=== PATIENT | female | born 1945 | race Caucasian/White ===

== ENCOUNTER 2021-12-25 09:45 | Inpatient (IN) ==
[2021-12-25] MEDS ORDERED: 0.9 % SODIUM CHLORIDE 1,000 ML IV ONE ×2 (10:27→11:02)
--- NOTE | 2021-12-25 10:30 | Emergency Department Note ---
HPI General Chief complaint: Cold/Flu Symptoms Stated complaint: bad cough Time Seen by Provider: 12/25/21 10:21 Source: patient Mode of arrival: ambulatory Limitations: no limitations History of Present Illness HPI Narrative: Narrative: The patient presents with approximately 3 weeks of what she calls a "bad cough." She states that over the last few days, it has become productive. She now has some nasal congestion as well. She feels mildly short of breath. She denies chest pain. She denies vomiting. She denies fever. Patient states that she feels like she is getting worse. Patient has not been on any antibiotics for this. She denies any other associated problems. Related Data Home Medications Medication Instructions Recorded Confirmed cholecalciferol (vitamin D3) 50 2,000 unit PO QDAY 11/15/18 12/07/21 mcg (2,000 unit) capsule aspirin 81 mg tablet 81 mg PO HS 12/10/20 12/07/21 famotidine 40 mg tablet (Pepcid) 40 mg PO HS 12/10/20 12/07/21 denosumab 60 mg/mL subcutaneous 60 mg subcut [id number] 05/23/21 12/07/21 syringe (Prolia) lovastatin 60 mg tablet,extended 60 mg PO QHS 05/23/21 12/07/21 release 24 hr multivitamin 1 tab PO QDAY 07/15/21 12/07/21 amlodipine 5 mg tablet 5 mg PO QDAY 08/29/21 12/07/21 apixaban 5 mg tablet (Eliquis) 5 mg PO BID 08/29/21 12/07/21 metoprolol succinate 25 mg 25 mg PO BID 08/29/21 12/07/21 tablet,extended release 24 hr omega 8-qns-hhz-fish oil 300 1 cap PO QDAY 08/29/21 12/07/21 mg-1,000 mg capsule (Fish Oil) pantoprazole 40 mg tablet,delayed 40 mg PO QDAY 08/29/21 12/07/21 release lisinopril 40 mg tablet 20 mg PO QDAY 12/07/21 12/07/21 Previous Rx's Medication Instructions Recorded hydrocodone 5 mg-acetaminophen 325 See Rx Instructions PO Q6H PRN 05/10/21 mg tablet Compression Fracture #30 tabs Allergies Allergy/AdvReac Type Severity Reaction Status Date / Time morphine AdvReac Itching Verified 12/25/21 09:51 Review of Systems ROS ROS Narrative: Narrative: All systems ED: reviewed and negative except as stated. [facility] Narrative Patient History Narrative: Narrative: Medical/Surgical/Family History All Active Problems (Updated 12/25/21 @ 14:50 by Salvador Ngo MD) Anemia (Chronic) Colon polyp (Chronic) Diverticulosis (Chronic) Stroke (Chronic ~2009) GI bleed (Chronic ~2016) Atrial fibrillation (Chronic ~2020) Hypertension (Chronic) High cholesterol (Chronic) Other low back pain (Chronic) Sacroiliac joint pain (Chronic) GERD (gastroesophageal reflux disease) (Chronic) Osteoporosis (Chronic) Chronic pain (Chronic) Arthritis (Chronic) Difficulty walking (Chronic) Spondylosis without myelopathy or radiculopathy, lumbar region (Chronic) Age-related osteoporosis with current pathological fracture, vertebra(e), initial encounter for fracture (Chronic) Abnormal findings on radiological examination of gastrointestinal tract (Chronic) Acute renal insufficiency (Chronic) Vitamin D deficiency (Chronic) Scoliosis deformity of spine (Chronic) Compression fracture of lumbosacral spine (Chronic) Stage 3 chronic kidney disease (Chronic) Hyperlipidemia (Chronic) Hypersomnia (Chronic) Hypertensive renal disease (Chronic) CKD stage G3a/A1, GFR 45-59 and albumin creatinine ratio <30 mg/g (Acute) Pneumonia (Acute) Sepsis (Acute) Medical History (Updated 12/25/21 @ 14:50 by Salvador Ngo MD) Abnormal findings on radiological examination of gastrointestinal tract Acute renal insufficiency Age-related osteoporosis with current pathological fracture, vertebra(e), initial encounter for fracture Anemia Arthritis Right shoulder, left knee -- has had injections with Dr. Hodges Atrial fibrillation (~2020) September 2020 Chronic pain Colon polyp Compression fracture of lumbosacral spine L4 Difficulty walking Diverticulosis GERD (gastroesophageal reflux disease) GI bleed (~2016) 2017, from Ibuprofen use High cholesterol Hyperlipidemia Hypersomnia Hypertension Osteoporosis Other low back pain Sacroiliac joint pain Scoliosis deformity of spine Spondylosis without myelopathy or radiculopathy, lumbar region Stage 3 chronic kidney disease Right sided weakness, difficulty with word findings, balance is impacted later in the day, walks with cane if needed Stroke (~2009) Vitamin D deficiency Surgical History (Updated 08/29/21 @ 10:14 by Maisha Bhatti) History of colonoscopy w/Biopsy History of colonoscopy (~11/2018) History of esophagogastroduodenoscopy (EGD) (~11/2018) History of hernia repair (~1989) History of hysterectomy (~1991) Age 50 History of knee surgery History of repair of ACL (~1980) History of surgery (~06/2002) TA polyp removed. Family History (Updated 08/29/21 @ 10:16 by Maisha Bhatti) Mother Hypertension Dementia Heart disease Arthritis Father Hypertension Heart attack, Onset Age: 70 Cardiac arrhythmia Sister Chronic pain Hypertension Heart disease Brother , age 67 Diabetes Colon cancer, Onset Age: 67 Social History Smoking Status: Former smoker Alcohol Intake Frequency: does not drink Substance Use: does not use Exam Narrative Narrative: Narrative: General Limitations: no limitations General appearance: Present alert and in no apparent distress Head Head: Present atraumatic and normal inspection Eye Eye: Present normal appearance and EOMI ENT ENT: Present mucous membranes dry; Absent mucous membranes moist Neck Neck: Present normal inspection, full ROM and trachea midline Chest Chest: Present normal inspection and symmetric chest wall rise Respiratory Respiratory: Present normal lung sounds bilaterally; Absent respiratory distress Cardiovascular Cardiovascular: Present normal rhythm, tachycardia and other (Bilateral radial 2+) Adbominal Abdominal: Present soft; Absent distention or tenderness Extremities Extremities: Present normal inspection and full ROM Back Back: Present full ROM Neurological Neurological: Present alert and oriented X3 Psychiatric Psychiatric: Present normal affect and normal mood Skin Skin: Present warm (WNL) and dry Course Reevaluation(s) Reevaluation #1: Although patient's chest x-ray shows no consolidative process, she is COVID- negative. She does have a mildly elevated lactic acid. We will give a second liter of fluid. Plan to give her a dose of Rocephin and Zithromax to cover for possible pulmonary infection. It is possible that since she is mildly dehydrated, that the infiltrate may not show up on plain film x-ray. Time: 11:02 Consultations Consultation #1: I spoke to the hospitalist, Dr. Mckenzie. He said he would come down to evaluate this patient for local admission Time: 12:53 Vital Signs Vital signs: Vital Signs Temperature 98.1 F 12/25/21 09:49 Pulse Rate 113 H 12/25/21 09:49 Respiratory Rate 12/25/21 09:49 Blood Pressure 101/63 12/25/21 09:49 Pulse Oximetry (%) 93 12/25/21 09:49 Oxygen Delivery Method 12/25/21 09:49 Temperature 98.1 F 12/25/21 09:49 Pulse Rate 107 H 12/25/21 12:28 Respiratory Rate 33 H 12/25/21 12:28 Blood Pressure 107/72 12/25/21 12:28 Pulse Oximetry (%) 94 12/25/21 12:28 Oxygen Delivery Method 12/25/21 09:49 MDM MDM Narrative Medical decision making narrative: Narrative: The patient presents with a worsening cough. She is mildly tachycardic but has no other concerning SIRS criteria. Viral infection is considered. Pneumonia is considered. Plan to check CBC, CMP, COVID, and trop onin. We will get an EKG and a chest x-ray. We will give a liter of fluid. As this is a possible viral infection, antibiotics will be held until studies are available. If there is an infiltrate then antibiotics will be given. If COVID is negative, antibiotics will most likely be considered given the chronicity of the symptoms. Lab Data Result diagrams: 12/25/21 10:36 12/25/21 10:36 Labs: Lab Results 12/25/21 12/25/21 12/25/21 Range/Units 10:36 10:36 10:36 WBC 16.2 H (4.5-11.0) K/mcL RBC 3.82 (3.59-5.38) M/mcL Hgb 11.9 (11.2-15.7) g/dL Hct 36.2 (34.1-44.9) % MCV 94.8 (80.0-100.0) fL MCH 31.2 (26.0-34.0) pg MCHC 32.9 (31.0-36.0) g/dL RDW 13.0 (11.5-14.5) % Plt Count 524 H (140-440) K/mcL MPV 9.2 (7.4-10.4) fL Immature Gran % (Auto) 1.0 H (0.0-0.5) % Neut % (Auto) 87.4 H (38.0-78.0) % Lymph % (Auto) 4.4 L (15.5-49.0) % [place] % (Auto) 6.8 (1.0-12.0) % Eos % (Auto) 0.1 (0.0-7.0) % Baso % (Auto) 0.3 (0.0-2.0) % Lymph # (Auto) 0.72 L (1.50-4.80) K/mcL [place] # (Auto) 1.10 H (0.10-0.90) K/mcL Eos # (Auto) 0.01 (0.00-0.70) K/mcL Baso # (Auto) 0.05 (0.00-0.30) K/mcL Immature Gran # 0.16 H (0.00-0.05) K/mcl Absolute Neutrophils 14.14 H (1.80-8.00) K/mcL POC VBG pH (7.32-7.42) POC VBG pCO2 at Temp (41-51) POC VBG pO2 (25-40) POC VBG HCO3 (24-28) POC VBG Total CO2 (25-29) POC Venous O2 Sat (40-70) POC VBG Base Excess (-2-2) VBG Lactic Acid (0.5-2) Sodium 136 (133-145) mmol/L Potassium 4.1 (3.3-5.1) mmol/L Chloride 99 (96-108) mmol/L Carbon Dioxide 20 L (22-30) mmol/L Anion Gap 17.0 H (8.0-16.0) BUN 17 (8-23) mg/dL Creatinine 1.2 H (0.6-1.1) mg/dL GFR Calculation 44 Glucose 133 H (70-105) mg/dL Calcium 9.2 (8.6-10.4) mg/dL Total Bilirubin 1.2 H (0.1-1.0) mg/dL AST 334 H (<32) U/L ALT 187 H (<40) U/L Alkaline Phosphatase 729 H (39-117) U/L Total Protein 6.4 (5.9-8.4) gm/dL Albumin 3.6 (3.2-5.2) gm/dL Globulin 2.8 (2.2-3.7) gm/dL Albumin/Globulin Ratio 1.3 (1.0-2.3) Procalcitonin 0.52 H (<0.10) ng/mL POC Troponin I (0.02-0.08) 12/25/21 12/25/21 Range/Units 10:40 10:41 WBC (4.5-11.0) K/mcL RBC (3.59-5.38) M/mcL Hgb (11.2-15.7) g/dL Hct (34.1-44.9) % MCV (80.0-100.0) fL MCH (26.0-34.0) pg MCHC (31.0-36.0) g/dL RDW (11.5-14.5) % Plt Count (140-440) K/mcL MPV (7.4-10.4) fL Immature Gran % (Auto) (0.0-0.5) % Neut % (Auto) (38.0-78.0) % Lymph % (Auto) (15.5-49.0) % [place] % (Auto) (1.0-12.0) % Eos % (Auto) (0.0-7.0) % Baso % (Auto) (0.0-2.0) % Lymph # (Auto) (1.50-4.80) K/mcL [place] # (Auto) (0.10-0.90) K/mcL Eos # (Auto) (0.00-0.70) K/mcL Baso # (Auto) (0.00-0.30) K/mcL Immature Gran # (0.00-0.05) K/mcl Absolute Neutrophils (1.80-8.00) K/mcL POC VBG pH 7.45 H (7.32-7.42) POC VBG pCO2 at Temp 28.3 L (41-51) POC VBG pO2 25 (25-40) POC VBG HCO3 19.8 L (24-28) POC VBG Total CO2 21.0 L (25-29) POC Venous O2 Sat 51.0 (40-70) POC VBG Base Excess -4.0 L (-2-2) VBG Lactic Acid 2.2 H (0.5-2) Sodium (133-145) mmol/L Potassium (3.3-5.1) mmol/L Chloride (96-108) mmol/L Carbon Dioxide (22-30) mmol/L Anion Gap (8.0-16.0) BUN (8-23) mg/dL Creatinine (0.6-1.1) mg/dL GFR Calculation Glucose (70-105) mg/dL Calcium (8.6-10.4) mg/dL Total Bilirubin (0.1-1.0) mg/dL AST (<32) U/L ALT (<40) U/L Alkaline Phosphatase (39-117) U/L Total Protein (5.9-8.4) gm/dL Albumin (3.2-5.2) gm/dL Globulin (2.2-3.7) gm/dL Albumin/Globulin Ratio (1.0-2.3) Procalcitonin (<0.10) ng/mL POC Troponin I 0.04 (0.02-0.08) ED POC Tests ED POC Tests: SO - SARS Antigen Negative Radiology Data Radiology results narrative: Per my interpretation of the chest x-ray, there is no definite infiltrative process. There is a large hiatal hernia which is relatively unchanged from prior chest x-ray. EKG Data EKG #1: EKG attestation: Yes I reviewed and interpreted this EKG. and Yes There are no EKG findings of acute coronary syndrome EKG results narrative: Sinus, rate 108, normal axis, normal intervals, narrow complex QRS, no acute ST or T changes concerning for acute infarction or ischemia CC TIME Critical Care Time Critical Care Time: Yes Total Critical Care Time: 55 Attestation: Without intervention, patient may have had a deleterious outcome Discharge Plan Patient/Caregiver Discharge Instructions Pt seen by CAMP PROGRAM DIRECTOR/PA only: No Clinical Impression: Pneumonia Qualifiers: Pneumonia type: due to unspecified organism Laterality: unspecified laterality Lung location: unspecified part of lung Qualified Code(s): J18.9 - Pneumonia, unspecified organism Sepsis Qualifiers: Sepsis type: sepsis due to unspecified organism Sepsis acute organ dysfunction status: without acute organ dysfunction Qualified Code(s): A41.9 - Sepsis, unspecified organism Patient Disposition: Xfer As Inpt ([facility]) Condition: Fair Discharge Date/Time: 12/25/21 14:35 Discharge Comment: to room 111 at 1435
[2021-12-25] MEDS ORDERED: AZITHROMYCIN 500 MG in DEXTROSE 5% IN WATER 250 ML IV ONE (11:03)
[2021-12-25] MEDS ORDERED: cefTRIAXone 1 GM VIAL IV ONE (11:03)
[2021-12-25 11:11] LABS: Basophils # (Auto) 0.05 K/mcL (0.00-0.30); Basophils % (Auto) 0.3 % (0.0-2.0); Eosinophils # (Auto) 0.01 K/mcL (0.00-0.70); Eosinophils % (Auto) 0.1 % (0.0-7.0); Hematocrit 36.2 % (34.1-44.9); Hemoglobin 11.9 g/dL (11.2-15.7); Lymphocytes # (Auto) 0.72 K/mcL (1.50-4.80); Lymphocytes % (Auto) 4.4 % (15.5-49.0); Mean Cell Volume 94.8 fL (80.0-100.0); Mean Corpuscular HGB Conc 32.9 g/dL (31.0-36.0); Mean Platelet Volume 9.2 fL (7.4-10.4); Monocytes % (Auto) 6.8 % (1.0-12.0); Neutrophils % (Auto) 87.4 % (38.0-78.0); Platelet Count 524 K/mcL (140-440); RBC 3.82 M/mcL (3.59-5.38); WBC 16.2 K/mcL (4.5-11.0)
[2021-12-25 11:29] LABS: ALT/SGPT 187 U/L (<40); AST/SGOT 334 U/L (<32); Albumin 3.6 gm/dL (3.2-5.2); Albumin/Globulin Ratio 1.3 (1.0-2.3); Alkaline Phosphatase 729 U/L (39-117); Bilirubin,Total 1.2 mg/dL (0.1-1.0); Blood Urea Nitrogen 17 mg/dL (8-23); Calcium 9.2 mg/dL (8.6-10.4); Carbon Dioxide 20 mmol/L (22-30); Chloride 99 mmol/L (96-108); Globulin 2.8 gm/dL (2.2-3.7); Glomerular Filtration Rate 44; Glucose 133 mg/dL (70-105)
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
--- NOTE | 2021-12-25 13:41 | XRay Report ---
CLINICAL INFORMATION: Cough COMPARISON: 07/15/2021 TECHNIQUE: Portable FINDINGS: The heart is normal in size. Large hiatal hernia show slight increase. The remaining mediastinum and pulmonary vessels are normal. Moderate patchy infiltrate has developed in the left midlung. Small left pleural effusion noted. IMPRESSION: Moderate left midlung infiltrate-probable pneumonia Large hiatal hernia increasing Interpreted and Authenticated by: Varun Sung 12/25/21
[2021-12-25] MEDS ORDERED: KETOROLAC 30 MG/ML VIAL IV ONE (13:43)
[2021-12-25] MEDS ORDERED: POLYETHYLENE GLYCOL 3350 17 GM PACKET PO PRN (14:55)
[2021-12-25] MEDS ORDERED: METOPROLOL TARTRATE 5 MG/5 ML VIAL IV PRN (14:55)
[2021-12-25] MEDS ORDERED: ACETAMINOPHEN 325 MG TABLET PO PRN (14:55)
[2021-12-25] MEDS ORDERED: IPRATROPIUM/ALBUTEROL 3 ML AMPUL.NEB NEB PRN (14:55)
[2021-12-25] MEDS ORDERED: cefTRIAXone 1 GM in DEXTROSE 5% IN WATER 50 ML IV SCH (14:55)
[2021-12-25] MEDS ORDERED: ONDANSETRON 4 MG/2 ML VIAL IV PRN (14:55)
[2021-12-25] MEDS ORDERED: SENNOSIDES 1 TABLET PO PRN (14:55)
[2021-12-25] MEDS ORDERED: 0.9 % SODIUM CHLORIDE 1,000 ML IV SCH (14:55)
[2021-12-25] MEDS ORDERED: POTASSIUM CHLORIDE 40 MEQ in DEXTROSE 5% IN WATER 500 ML IV PRN (14:55)
[2021-12-25] MEDS ORDERED: MAGNESIUM SULFATE 2 GM/50 ML BAG IV PRN (14:55)
[2021-12-25] MEDS ORDERED: LABETALOL 5 MG/ML ML IV PRN (14:55)
[2021-12-25] MEDS ORDERED: POTASSIUM CHLORIDE 20 MEQ TABLET PO PRN ×2 (14:55)
[2021-12-25 15:35] LABS: Hepatitis B Surface Antigen Negative (Negative); Hepatitis C Virus Antibody Non-Reactive (Non-Reactive)
[2021-12-25] MEDS: 0.9 % SODIUM CHLORIDE 10 ML SYRINGE IV SCH ×2 (16:08→20:52)
--- NOTE | 2021-12-25 18:46 | Ultrasound Report ---
CLINICAL INFORMATION: Increased LFTs COMPARISON: None. FINDINGS: The gallbladder and bile ducts, liver, and pancreas are normal in size and echotexture without focal lesion. Common bile duct is normal at 4 mm. No free fluid. IMPRESSION: Normal gallbladder, bile ducts, liver and pancreas Interpreted and Authenticated by: Varun Sung 12/25/21
[2021-12-25] MEDS ORDERED: HYDROcodone/APAP (PP) 5/325MG TABLET (#4) PO PRN (19:07)
[2021-12-25] MEDS: FAMOTIDINE 20 MG TABLET PO SCH (20:51)
[2021-12-25] MEDS: METOPROLOL SUCCINATE 25 MG TAB.XL.24H PO SCH (20:51)
[2021-12-25] MEDS: APIXABAN 5 MG TABLET PO SCH (20:51)
[2021-12-25] MEDS: DOCUSATE SODIUM 100 MG CAPSULE PO SCH (20:51)
[2021-12-25] MEDS: ATORVASTATIN 10 MG TABLET PO SCH (20:51)
[2021-12-25] MEDS: ASPIRIN 81 MG TAB.CHEW PO SCH (20:51)
[2021-12-25] MEDS: HYDROcodone/APAP 5/325MG TABLET PO PRN (23:47)
[2021-12-26] MEDS: 0.9 % SODIUM CHLORIDE 10 ML SYRINGE IV SCH ×3 (05:01→20:30)
[2021-12-26 06:49] LABS: Hematocrit 29.9 % (34.1-44.9); Hemoglobin 10.1 g/dL (11.2-15.7); Mean Cell Volume 93.1 fL (80.0-100.0); Mean Corpuscular HGB Conc 33.8 g/dL (31.0-36.0); Mean Platelet Volume 9.3 fL (7.4-10.4); Platelet Count 441 K/mcL (140-440); RBC 3.21 M/mcL (3.59-5.38); Red Cell Distribution Width 12.9 % (11.5-14.5); WBC 10.9 K/mcL (4.5-11.0)
[2021-12-26] MEDS: PANTOPRAZOLE 40 MG TABLET PO SCH (07:00)
[2021-12-26 07:20] LABS: ALT/SGPT 113 U/L (<40); AST/SGOT 104 U/L (<32); Albumin 2.5 gm/dL (3.2-5.2); Albumin/Globulin Ratio 0.8 (1.0-2.3); Alkaline Phosphatase 470 U/L (39-117); Bilirubin,Direct 0.3 mg/dL (<0.3); Bilirubin,Total 0.6 mg/dL (0.1-1.0); Blood Urea Nitrogen 11 mg/dL (8-23); Carbon Dioxide 20 mmol/L (22-30); Chloride 108 mmol/L (96-108); Globulin 3.1 gm/dL (2.2-3.7); Glomerular Filtration Rate 85; Glucose 101 mg/dL (70-105); Lactate Dehydrogenase 192 U/L (135-225); Phosphorous 1.7 mg/dL (2.5-4.5); Triglycerides 65 mg/dL (<150); Uric Acid 3.8 mg/dL (2.5-8.0)
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
[2021-12-26] MEDS: METOPROLOL SUCCINATE 25 MG TAB.XL.24H PO SCH ×2 (08:25→20:27)
[2021-12-26] MEDS: cefTRIAXone 1 GM VIAL IV SCH (08:25)
[2021-12-26] MEDS: DOCUSATE SODIUM 100 MG CAPSULE PO SCH ×2 (08:25→20:26)
[2021-12-26] MEDS: PHOSPHORUS 250 MG TABLET PO SCH ×4 (08:25→20:27)
[2021-12-26] MEDS: NEUTRA PHOS 1 PACKET PO SCH ×2 (08:25→21:07)
[2021-12-26] MEDS: APIXABAN 5 MG TABLET PO SCH ×2 (08:25→20:27)
[2021-12-26 08:26] LABS: Band Neutrophils % 2 % (0-10); Eosinophils % (Manual) 1 % (0-7); Lymphocytes % 14 % (15-49); Monocytes % (Manual) 7 % (1-12); Platelet Estimate NORMAL (Normal); RBC Morphology NORMAL (Normal); Reactive Lymphocytes 1 % (0-2); Segmented Neutrophils % 75 % (38-78)
--- NOTE | 2021-12-26 08:55 | EKG ---
[facility] Minor Care Test Date: 2021-12-25 Pat Name: Latha Gamboa Department: ED Room: Gender: Female Student Liaison Officer: attila : 1945 Requested By: Salvador Ngo Order Number: [id number] Reading MD: Varun Kam M.D. Measurements Intervals [place] Rate: 108 P: 47 FL: 173 QRS: 10 QRSD: 76 T: 17 QT: 328 QTc: 440 Interpretive Statements Sinus tachycardia Electronically Signed On 12-26-2021 8:55:20 PDT by Varun Kam M.D. /[facility] [place]/M0/[id number]
[2021-12-26] MEDS ORDERED: LISINOPRIL 20 MG TABLET PO SCH (09:00)
[2021-12-26] MEDS ORDERED: amLODIPine 5 MG TABLET PO SCH (09:00)
[2021-12-26] MEDS ORDERED: PANTOPRAZOLE 40 MG TABLET PO SCH (09:00)
[2021-12-26] MEDS ORDERED: BENZONATATE 100 MG CAPSULE PO ONE (09:25)
[2021-12-26] MEDS ORDERED: AZITHROMYCIN 500 MG in DEXTROSE 5% IN WATER 250 ML IV SCH (11:00)
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
--- OUTSIDE RECORDS SUMMARY | 2021-12-26 11:51 | External Medical Summary | Encounter Summary ---
:1945 Author Care Team Providers Name Role Phone Mary Zhang Jefry [facility] Primary Care Provider [phone] Reason for Visit cough Assessment and Plan 1. Posterior rhinorrhea Discussed her posterior rhinorrhea and the use of ipratropium bromide nasal spray to address this. If we treat her rhinorrhea her cough should also improve. If no she can add cetirizine 5mg q hs for treatment. C all our office in two days to let us know if she is improving with the use of ipratro pium spray. ipratropium bromide 21 mcg (0.03 %) n stephanie spray 2. Chronic kidney disease stage 3 Awaiting repeat lab draw. Discussion Note: None recorded.Patient educational handouts: No [...] bromide 21 mcg (0.03 %) nasal spray [place] 2 sprays twice a day by intranasal [...] - nt Some medications listed in Document: #[id number] could not be added to this patient's chart. Please review this document and add these medications to the patient's chart manually as needed. Medications Administered None recorded. Vitals Height Weight BMI Blood Pressure 5 ft 5 in 149 lbs 24.8 kg/m2 130/76 mm[Hg] Results Lab Results None recorded. Allergies Code Code System Name Reaction Severity Onset NKDA Notes: Some allergies listed in Docume nt: #[id number] could not be added to this patient's [...] lable Notes: 2016; 2021 Dr Shakeel Salazar [facility] Colonoscopy Information not avai lable Notes: 2017, [...] mRNA, LNP-S, PF, 30 mcg/0.3 mL dose ([place]) 12/06/2020 12/27/2020 influenza, high-dose, quadrivalent 01/26/2021 pneumococcal [...] husb and in 2018 (cardiac arrest with OK) What is your level of alcohol None consumption? Do you have any pets? N Have you been to an area known N to be high risk for COVID-19? Are you deaf or do you have N serious difficulty hearing? Are you passively exposed to N smoke? Do you use your seat belt or Y car seat routinely? At what age did you start 35 [...] tive with her yardwork - has a lar [employer] yard In the 14 days before symptom [...] coffee consumption? Do you feel stressed (tense, [id number] restless, nervous, or anxious, or unable to [...] otes) Functional Status No Impairment. Past Encounters 12/20/2021 Posterior Rhinorrhea; Chronic Kidney Dis ease Stage 3 Mary Zhang, DNP: [address], [address], [place] [address], Ph. History of Present Illness Cough Reported By: Patient Notes: <div>Patient presents today with a 10 day history of coughing that is waking her up in the night. She has been using OTC cough syrup at night. She reports that she is not coughing up anything. She has noted a runny nose. She has not seen any m ucus to know that color it is. She reports that she has some "[place] a moxicillin and Zpak". She has not been on antibiotics though as she di d not take them due to her use of Eliquis.</div><div>
</div ><div>He has seen Dr Griffin and is going to have follow up lab work n ext week. </div> Review of Systems Comprehensive General Adult ROS Reported By: Patient Constitutional: Constitutional: no fever, no chills, no malaise Eyes: Eyes: no irritation; no eye discharge <p> ENMT: Ears: no difficulty hearing, no ear pain. Nose: nose problems, sinus problems. Mouth/Throat: no s ore throat, no mouth ulcers, no oral abnormalities; <p> Cardiovascular: Cardiovascular: no chest tobi n, no shortness of breath when walking, no shortness of breath when lying down; <p> Respiratory: Respiratory: no wheezing, no shortness of breath, cough; <p> Integumentary: Skin: no rashes Physical Exam Upper Respiratory Exam Reported By: Patient Constitutional: General Appearance: healthy- appearing, well-nourished, well-developed Head and Face: Inspection of face: no swell ing. Palpation and percussion of sinuses: no tenderness Eyes: Lids and Conjunctivae: no in jection, lids are normal, conjunctiva: no mucoid discharge ENMT: Ears and Nose: no scars, no lesions, no masses. EACs and TMs outer ear: right and left external auditory canals normal, tympanic membranes mobile and reactiv e to light bilateral. Nasal Passages: nasal discharge. Lips and Gu ms: no sores, no bleeding. Hearing: normal. Oropharynx: no eryth you, no lesions, no exudates, no postnasal drip, uvula midlin e, no pooling of saliva Neck: Neck: suppleness, non-tender , no masses, symmetrical Lymphatic System: Cervical lymph nodes: no ten derness, no inflammation, not palpable Respiratory: Respiratory effort: breathin g normally, no inspiratory retraction. Auscultation: no wheezes, no rhonchi, no crackles, breath sounds normal Cardiovascular: Auscultation: RRR, no rubs, no gallops, no murmur Skin: skin inspection: no rashes
--- OUTSIDE RECORDS SUMMARY | 2021-12-26 11:51 | External Medical Summary ---
:1945 Author Care Team Providers Name Role Phone RADHA SULLIVAN PORSHA [facility] Primary Care Provider [phone] Allergies Code Code System Name Reaction Severity Status Onset NKDA Notes: Some allergies listed in Docume nt: #[id number] could not be added to this patient's chart. Please review this docu ment and add these allergies to the patient's chart manually as needed. Medications Name Status Start Date Stop Date alendronate 70 mg tablet Completed 022 Take 1 tablet every week by oral route. amlodipine 5 mg tablet Active Not avail able Take 1 tablet every day by oral route. Bioflex Completed 08/10/2021 take daily cyclobenzaprine 10 mg tablet Completed 02/2022 Take 1 tablet 3 times a day by oral route as needed. Eliquis 5 mg tablet Active Not availabl e Take 1 tablet twice a day by oral route. Fish Oil 1,000 mg (120 mg-180 mg) capsule Active Not available Take 1 capsule every day by oral route. hydrocodone 5 mg-acetaminophen 325 mg tablet Completed 12/20/2021 Take 1-2 tablet po q six hours prn back pain x 7 days ipratropium bromide 21 mcg (0.03 %) nasal spray Active Not available [place] 2 sprays twice a day by intranasal route as needed. lisinopril 20 mg tablet Active Not avai lable Take 1 tablet every day by oral route. lisinopril 30 mg tablet Completed 08/11/19 22 Take 1 tablet every day by oral route in the evening. lisinopril 40 mg tablet Completed 12/21/19 22 Take 1 tablet every day by oral route. Longs Adult Low Strength ASA 81 mg tablet,delayed release Active Not available Take 1 tablet every day by oral route. lovastatin 40 mg tablet Active Not avai lable Take 1.5 tablets every day by oral route for 90 days. metoprolol succinate ER 25 mg tablet,extended release 24 hr Acti ve Not available Take 1 tablet twice a day by oral route. multivitamin Active Not available take daily pantoprazole 40 mg tablet,delayed release Active Not available Take 1 tablet every day by oral route. Pepcid 40 mg tablet Active Not availabl e Take 2 tablets every day by oral route. Prolia 60 mg/mL subcutaneous syringe Active Not available Inject 1 mL as needed by subcutaneous route. Injection every six months promethazine 6.25 mg-codeine 10 mg/5 mL syrup Active Not available Take 5 mL as needed by oral route at bedtime. tramadol 50 mg tablet Completed 02/17/2021 Take 1 tablet every 4 hours by oral route. vitamin D3 2,000 unit-folic acid 1 mg tablet Active Not available Take 1 tablet every day by oral route. Notes: medications went over with pt d uring apt - nt Some medications listed in Document: #[id number] could not be added to this patient's [...] lable Notes: 2016; 2021 Dr Shakeel Salazar [facility] Colonoscopy Information not avai lable Notes: 2017, Shakeel Salazar MD for GI bleeding; was told that she did not need any additional Hernia Repair Information not avai lable Notes: 46 years of age Knee Surgery Information not avai lable Notes: left knee repair after ski acci dent, at age 34, Dr. Arthur Hysterectomy Information not avai lable Notes: Age 50 02/17/2021 XR, Hip + Pelvis, Bilateral [facility] [address] [place] [address] (Work [address]) 02/17/2021 XR, Lumbar Spine [facility] [address] [place] [address] (Work Place) 03/02/2021 MAMMO, Screening, Digital, Bilateral [facility] [address] [place] [address] (Work Place) 04/18/2021 Electrocardiogram [facility] cine [address] [facility] [address] [place] [address] (Work Place) 04/18/2021 US, Screening for Abdominal Aortic [facility] Aneurysm [address] [place] [address] (Work Place) 08/10/2021 US, Duplex, Renal Artery [facility] [address] [place] [address] (Work Place) 08/10/2021 Home Sleep Study [facility] [address] [facility] [address] [place] [address] (Work Place) Results Lab Results Date Name Specimen Result Interpretation Description Value Range Status Address 12/05/2021 CMP, Serum Plasma Glucose,random 99 mg/dL 70-10 5 Final Pathologists' or Plasma mg/dL Regiona l Lab: [address] [facility] , [place] Plasma Blood Urea 15 mg/dL 8-23 Final Pat hologists' Nitrogen mg/dL Regional Lab: [address] [facility] , [place] Plasma High Creatinine 1.6 0.6-1.1 Final Path ologists' mg/dL mg/dL Regional L ab: [address] , [place] Plasma Sodium 144 133-145 Final Patholog ists' mmol/L mmol/L Regional L ab: [address] , [place] Plasma Potassium 4.7 3.3-5.1 Final Patho logists' mmol/L mmol/L Regional L ab: [address] [facility] , [place] Plasma Chloride 108 96-108 Final Patholo gists' mmol/L mmol/L Regional L ab: [address] , [place] Plasma Carbon Dioxide 23 22-30 Final P athologists' mmol/L mmol/L Regional L ab: [address] , [place] Plasma Anion Gap 13.0 8.0-16.0 Final Path ologists' Regional L ab: [address] , [place] Plasma Calcium 9.3 8.6-10.4 Final Pathol ogists' mg/dL mg/dL Regional L ab: [address] , [place] Plasma Total Protein 6.5 5.9-8.4 Final P athologists' gm/dL gm/dL Regional L ab: [address] , [place] Plasma Albumin 4.5 3.2-5.2 Final Patholo gists' gm/dL gm/dL Regional L ab: [address] [facility] , [place] Plasma Low Globulin 2.0 2.2-3.7 Final Pathol ogists' gm/dL gm/dL Regional L ab: [address] [facility] , [place] Plasma Alb/glob Ratio 2.3 1.0-2.3 Final Pathologists' Regional L ab: [address] [facility] , [place] Plasma Bilirubin,tota 0.7 0.1-1.0 Final Pathologists' l mg/dL mg/dL Regional L ab: [address] [facility] , [place] Plasma AST/SGOT 22 U/L <32 U/L Final Pathol ogists' Regional L ab: [address] [facility] , [place] Plasma ALT/SGPT 21 U/L <40 U/L Final Pathol ogists' Regional L ab: [address] [facility] , [place] Plasma Alkaline 97 U/L 39-117 Final Patholo gists' Phosphatase U/L Regio nal Lab: [address] [facility] , [place] Plasma Glomerular 31 Final Patho logists' Filtration Rate R egional Lab: [address] [facility] , [place] 11/29/2021 CMP, Serum Plasma Glucose,random 82 mg/dL 70-10 5 Final [facility]ologists[facility] or Plasma mg/dL Regiona l Lab: [address] [facility] , [place] Plasma Blood Urea 19 mg/dL 8-23 Final Pat hologists' Nitrogen mg/dL Regional Lab: [address] [facility] , [place] Plasma High Creatinine 1.4 0.6-1.1 Final Path ologists' mg/dL mg/dL Regional L ab: [address] [facility] , [place] Plasma Sodium 142 133-145 Final Patholog ists' mmol/L mmol/L Regional L ab: [address] [facility] , [place] Plasma Potassium 4.3 3.3-5.1 Final Patho logists' mmol/L mmol/L Regional L ab: [address] [facility] , [place] Plasma Chloride 106 96-108 Final Patholo gists' mmol/L mmol/L Regional L ab: [address] [facility] , [place] Plasma Carbon Dioxide 22 22-30 Final P athologists' mmol/L mmol/L Regional L ab: [address] [facility] , [place] Plasma Anion Gap 14.0 8.0-16.0 Final Path ologists' Regional L ab: [address] [facility] , [place] Plasma Calcium 9.2 8.6-10.4 Final Pathol ogists' mg/dL mg/dL Regional L ab: [address] [facility] , [place] Plasma Total Protein 6.6 5.9-8.4 Final P athologists' gm/dL gm/dL Regional L ab: [address] [facility] , [place] Plasma Albumin 4.4 3.2-5.2 Final Patholo gists' gm/dL gm/dL Regional L ab: [address] [facility] , [place] Plasma Globulin 2.2 2.2-3.7 Final Pathol ogists' gm/dL gm/dL Regional L ab: [address] [facility] , [place] Plasma Alb/glob Ratio 2.0 1.0-2.3 Final Pathologists' Regional L ab: [address] [facility] , [place] Plasma Bilirubin,tota 0.9 0.1-1.0 Final Pathologists' l mg/dL mg/dL Regional L ab: [address] [facility] , [place] Plasma High AST/SGOT 63 U/L <32 U/L Final Pathol ogists' Regional L ab: [address] [facility] , [place] Plasma High ALT/SGPT 49 U/L <40 U/L Final Pathol ogists' Regional L ab: [address] [facility] , [place] Plasma Alkaline 80 U/L 39-117 Final Patholo gists' Phosphatase U/L Regio nal Lab: [address] [facility] , [place] Plasma Glomerular 37 Final Patho logists' Filtration Rate R egional Lab: [address] [place] [address] 11/29/2021 Lipid Plasma Cholesterol 178 <200 Final Pathologists' Panel, mg/dL mg/dL Regional L ab: Blood [address] [facility] , [place] Plasma Triglycerides 94 mg/dL <150 Final Pathologists' mg/dL Regional L ab: [address] [facility] , [place] Plasma High LDL,calculated 105 <100 Final P athologists' mg/dL mg/dL Regional L ab: [address] [facility] , [place] Plasma HDL 55 mg/dL >40 mg/dL Final Patho logists' Cholesterol Regio nal Lab: [address] [facility] , [place] Plasma non-HDL 123 <130 Final Patholog ists' Cholesterol mg/dL mg/dL Regio nal Lab: [address] [place] [address] 04/18/2021 Microalbum U Microalbumin <1.2 Fi nal Pathologists' in, Urine mg/dL Regiona l Lab: [address] [place] [address] U Microalbumin/c 9.0 0.5-30.0 Final Pathologists' reatinine Ratio mg/gm mg/gm R egional Lab: [address] , [place] U Urine 132.9 28.0-217. Final Patholo gists' Creatinine mg/dL 0 mg/dL Regio nal Lab: [address] , [place] 04/18/2021 Urinalysis U Urine Color yellow Fin al Pathologists' , Regional L ab: Microscopi [address], c [place] U Urine clear clear Final Pathologis ts' Appearance Region al Lab: [address] , [place] U Specific 1.025 1.000-1.0 Final Path ologists' [place],urine 35 Reg ional Lab: [address] , [place] U pH,urine 5.0 5.0-9.0 Final Pathol ogists' Regional L ab: [address] , [place] U Urine Protein negative negative Final Pathologists' mg/dL mg/dL Regional L ab: [address] , [place] U Urine Glucose negative negative Final Pathologists' (UA) mg/dL mg/dL Regional L ab: [address] , [place] U Urine Ketone negative negative Final Pathologists' mg/dL mg/dL Regional L ab: [address] , [place] U Urine normal negative/ Final Patholo gists' Urobilinogen mg/dL normal Norma onal Lab: mg/dL [address] , [place] U Urine negative negative Final Pathol ogists' Bilirubin mg/dL mg/dL Regiona l Lab: [address] , [place] U ABNO Urine Blood trace-in negative Final Pathologists' RMAL tact yina/mcL Regional Lab: yina/mcL [address], [place] U Urine Nitrite negative negative Final Pathologists' Regional L ab: [address] , [place] U Urine negative negative Final Pathol ogists' Leukocyte /uL /uL Regiona l Lab: Esterase [address], [place] U Urine RBC 3 /hpf 0-3 /hpf Final Path ologists' Regional L ab: [address] , [place] U Urine WBC 3 /hpf 0-4 /hpf Final Path ologists' Regional L ab: [address] , [place] U Urine Squamous <1 /hpf 0-4 /hpf Final Pathologists' Epi Cells Regiona l Lab: [address] , [place] U Urine <1 /hpf 0-2 /hpf Final Patholo gists' Transitional Norma onal Lab: Epi Cells [address], [place] U Urine Bacteria none 0 /hpf Final P athologists' /hpf Regional L ab: [address] [facility] , [place] U ABNO Urine Mucus few /hpf none /hpf Final Pathologists' RMAL Regional L ab: [address] [facility] , [place] U Add Culture? no Final Pat hologists' Regional L ab: [address] [facility] , [place] 04/18/2021 CBC W/ Whole Wbc 6.6 4.5-11.0 Final Path ologists' Auto Diff Blood K/mcL K/mcL Regiona l Lab: [address] [facility] , [place] Whole Rbc 4.64 3.59-5.38 Final Patholo gists' Blood M/mcL M/mcL Regional L ab: [address] [facility] , [place] Whole Hgb 14.3 11.2-15.7 Final Patholo gists' Blood g/dL g/dL Regional L ab: [address] [facility] , [place] Whole Hct 43.2 % 34.1-44.9 Final Patholo gists' Blood % Regional L ab: [address] [place] [address] Whole Mcv 93.1 fL 80.0-100. Final Pathol ogists' Blood 0 fL Regional L ab: [address] [place] [address] Whole Mch 30.8 pg 26.0-34.0 Final Pathol ogists' Blood pg Regional L ab: [address] [facility] , [place] Whole Mchc 33.1 31.0-36.0 Final Patholo gists' Blood g/dL g/dL Regional L ab: [address] [place] [address] Whole Rdw 13.3 % 11.5-14.5 Final Patholo gists' Blood % Regional L ab: [address] [facility] , [place] Whole Plt CT 202 140-440 Final Patholog ists' Blood K/mcL K/mcL Regional L ab: [address] [facility] , [place] Whole High Mpv 11.4 fL 7.4-10.4 Final Patholo gists' Blood fL Regional L ab: [address] [facility] , [place] Whole Neut % 64.5 % 38.0-78.0 Final Pathol ogists' Blood % Regional L ab: [address] [facility] , [place] Whole Lymph % 27.4 % 15.5-49.0 Final Patho logists' Blood % Regional L ab: [address] [facility] , [place] Whole [place] % 6.1 % 1.0-12.0 Final Patholo gists' Blood % Regional L ab: [address] , [place] Whole Eos % 1.5 % 0.0-7.0 % Final Patholo gists' Blood Regional L ab: [address] [facility] , [place] Whole Baso % 0.5 % 0.0-2.0 % Final Pathol ogists' Blood Regional L ab: [address] [facility] , [place] Whole Absolute 4.24 1.80-8.00 Final Path ologists' Blood Neutrophil K/mcL K/mcL Region al Lab: Count [address] [facility] , [place] Whole Lymph # 1.80 1.50-4.80 Final Patho logists' Blood K/mcL K/mcL Regional L ab: [address] [facility] , [place] Whole [place] # 0.40 0.10-0.90 Final Pathol ogists' Blood K/mcL K/mcL Regional L ab: [address] [facility] , [place] Whole Eos # 0.10 0.00-0.70 Final Patholo gists' Blood K/mcL K/mcL Regional L ab: [address] [facility] , [place] Whole Baso # 0.03 0.00-0.30 Final Pathol ogists' Blood K/mcL K/mcL Regional L ab: [address] [facility] , [place] 04/18/2021 CMP, Serum Plasma Glucose,random 93 mg/dL 70-10 5 Final Pathologists' or Plasma mg/dL Regiona l Lab: [address] [facility] , [place] Plasma Blood Urea 17 mg/dL 8-23 Final Pat hologists' Nitrogen mg/dL Regional Lab: [address] [facility] , [place] Plasma Creatinine 1.1 0.6-1.1 Final Path ologists' mg/dL mg/dL Regional L ab: [address] [facility] , [place] Plasma Sodium 144 133-145 Final Patholog ists' mmol/L mmol/L Regional L ab: [address] [facility] , [place] Plasma Potassium 4.3 3.3-5.1 Final Patho logists' mmol/L mmol/L Regional L ab: [address] [facility] , [place] Plasma Chloride 106 96-108 Final Patholo gists' mmol/L mmol/L Regional L ab: [address] [facility] , [place] Plasma Carbon Dioxide 24 22-30 Final P athologists' mmol/L mmol/L Regional L ab: [address] [facility] , [place] Plasma Anion Gap 14.0 8.0-16.0 Final Path ologists' Regional L ab: [address] , [place] Plasma Calcium 9.3 8.6-10.4 Final Pathol ogists' mg/dL mg/dL Regional L ab: [address] , [place] Plasma Total Protein 6.3 5.9-8.4 Final P athologists' gm/dL gm/dL Regional L ab: [address] , [place] Plasma Albumin 4.3 3.2-5.2 Final Patholo gists' gm/dL gm/dL Regional L ab: [address] , [place] Plasma Low Globulin 2.0 2.2-3.7 Final Pathol ogists' gm/dL gm/dL Regional L ab: [address] , [place] Plasma Alb/glob Ratio 2.2 1.0-2.3 Final Pathologists' Regional L ab: [address] [facility] , [place] Plasma Bilirubin,tota 0.7 0.1-1.0 Final Pathologists' l mg/dL mg/dL Regional L ab: [address] [facility] , [place] Plasma AST/SGOT 24 U/L <32 U/L Final Pathol ogists' Regional L ab: [address] [facility] , [place] Plasma ALT/SGPT 15 U/L <40 U/L Final Pathol ogists' Regional L ab: [address] , [place] Plasma Alkaline 82 U/L 39-117 Final Patholo gists' Phosphatase U/L Regio nal Lab: [address] [facility] , [place] Plasma Glomerular 49 Final Patho logists' Filtration Rate R egional Lab: [address] [facility] , [place] 04/18/2021 Lipid Plasma Cholesterol 187 <200 Final Pathologists' Panel, mg/dL mg/dL Regional L ab: Serum [address] [facility] , [place] Plasma Triglycerides 92 mg/dL <150 Final Pathologists' mg/dL Regional L ab: [address] [facility] , [place] Plasma High LDL,calculated 119 <100 Final P athologists' mg/dL mg/dL Regional L ab: [address] , [place] Plasma HDL 50 mg/dL >40 mg/dL Final Patho logists' Cholesterol Regio nal Lab: [address] [facility] , [place] Plasma High non-HDL 137 <130 Final Patholog ists' Cholesterol mg/dL mg/dL Regio nal Lab: [address] [facility] , [place] 04/18/2021 Magnesium, Plasma Magnesium 1.9 1.6-2.5 Sandie l Pathologists' Serum or mg/dL mg/dL [facility] Lab: Plasma [address] , [place] 04/18/2021 Phosphorus Plasma Phosphorus 3.6 2.5-4.5 Fin al Pathologists' , Serum or mg/dL mg/dL [facility] Lab: Plasma [address] , [place] 04/18/2021 TSH, Serum Plasma Thyroid 1.98 0.27-5.01 Sandie l Pathologists' or Plasma Stimulating uIU/mL uIU/mL [facility] Lab: Hormone [address], [place] 04/18/2021 Vitamin D, Plasma Vitamin D, 62.41 >30.00 Sandie l Pathologists' 25-Hydroxy 25-Hydroxy NG/mL NG/mL Re [facility] Lab: , Total, [address], Serum [place] 09/13/2020 Rapid SARS No observation CoV + SARS recorded. CoV 2 Ag, QL IA, Respirator y Specimen Past Encounters 12/20/2021 Posterior Rhinorrhea; Chronic Kidney Dis ease Stage 3 Radha Sullivan DNP: [address] [place] [address], [place] [phone], Ph. 11/01/2021 Osteoporosis Radha Sullivan DNP: [address] [place] [address], [place] [phone], Ph. 08/10/2021 Essential Hypertension; Hypersomnia Radha Sullivan DNP: [address], [place] [address], Ph. 07/11/2021 Essential Hypertension; Snoring Radha Sullivan DNP: [address] [place] [address], [place] [address], Ph. 06/20/2021 Hypertensive Disorder Radha Sullivan DNP: [address] [place] [address], [place] [address], Ph. 06/17/2021 Essential Hypertension; Sacroiliac Joint Pain Radha Sullivan DNP: [address], [place] [address], Ph. 04/29/2021 Osteoporosis Radha Sullivan DNP: [address] [place] [address], [place] [phone], Ph. 04/18/2021 Adult Health Examination; Hyperlipidemia ; Atrial Fibrillation; Chronic Kidney Disease Stage 3; Essential Hypertension; Osteoporosis; Gastroesophageal Reflux Disease; Abdominal Aortic Aneurysm Screening; Vitamin D Deficiency; Administration of Diphtheria, Pertussis, and Tetanus Vaccine; Administration of Pneumococcal Vaccine Radha Gallegoss, DNP: [address] [facility] [address], [place] [address], Ph. 02/17/2021 Sacroiliac Joint Pain; Osteoporosis Radha Gallegoss, DNP: [address] [facility], [address], [place] [address], Ph. Social History Tobacco Smoking Status Former Smoker Vaccine List Vaccine Type COVID-19, mRNA, LNP-S, PF, 30 mcg/0.3 mL dose ([employer]) 12/06/2020 12/27/2020 influenza, high-dose, quadrivalent 01/26/2021 pneumococcal conjugate PCV 13 02/07/2018 pneumococcal polysaccharide PPV23 .5 mL Tdap 04/18/2021.5 mL Plan of Care Reminders Provider Appointments None recorded. Lab None recorded. Referral None recorded. Procedures None recorded. Surgeries None recorded. Imaging None recorded. Vitals 12/20/2021 11:30AM Established Patient 30 Height Weight BMI Blood Pressure 5 ft 5 in 149 lbs 24.8 kg/m2 130/76 mm[Hg] 08/10/2021 02:00PM Established Patient 30 Height Weight BMI Blood Pressure 5 ft 5 in 152 lbs 25.3 kg/m2 138/86 mm[Hg] 07/11/2021 11:30AM Established Patient 30 Height Weight BMI Blood Pressure 5 ft 5 in 152 lbs 25.3 kg/m2 (1) 148/90 mm[H g] (2) 174/94 mm[Hg ] 06/17/2021 10:45AM Established Patient 30 Height Weight BMI Blood Pressure 5 ft 5 in 151.8 lbs 25.3 kg/m2 (1) 130/76 mm[H g] (2) 134/78 mm[Hg ] 04/18/2021 10:00AM MEDICARE ANNUAL WELLNESS Height Weight BMI Blood Pressure 5 ft 5 in 153 lbs 25.5 kg/m2 124/78 mm[Hg] 02/17/2021 01:00PM New Patient 60 Height Weight BMI Blood Pressure 5 ft 5 in 152 lbs 25.3 kg/m2 116/76 mm[Hg]
[2021-12-26] MEDS: HYDROcodone/APAP 5/325MG TABLET PO PRN (16:57)
[2021-12-26] MEDS: ASPIRIN 81 MG TAB.CHEW PO SCH (20:26)
[2021-12-26] MEDS: FAMOTIDINE 20 MG TABLET PO SCH (20:27)
[2021-12-26] MEDS: ATORVASTATIN 10 MG TABLET PO SCH (20:28)
[2021-12-26] MEDS ORDERED: MELATONIN 3 MG TABLET PO SCH (21:00)
[2021-12-26] MEDS ORDERED: diphenhydrAMINE 25 MG CAPSULE PO PRN (21:00)
[2021-12-27] MEDS: 0.9 % SODIUM CHLORIDE 10 ML SYRINGE IV SCH (06:42)
[2021-12-27 06:55] LABS: ALT/SGPT 156 U/L (<40); AST/SGOT 164 U/L (<32); Albumin 2.6 gm/dL (3.2-5.2); Albumin/Globulin Ratio 0.8 (1.0-2.3); Alkaline Phosphatase 582 U/L (39-117); Bilirubin,Direct 0.3 mg/dL (<0.3); Bilirubin,Total 0.5 mg/dL (0.1-1.0); Blood Urea Nitrogen 9 mg/dL (8-23); Calcium 8.2 mg/dL (8.6-10.4); Carbon Dioxide 20 mmol/L (22-30); Chloride 101 mmol/L (96-108); Globulin 3.2 gm/dL (2.2-3.7); Glomerular Filtration Rate 89; Glucose 100 mg/dL (70-105); Lactate Dehydrogenase 227 U/L (135-225); Phosphorous 2.4 mg/dL (2.5-4.5); Triglycerides 80 mg/dL (<150); Uric Acid 3.2 mg/dL (2.5-8.0)
[2021-12-27] MEDS: PANTOPRAZOLE 40 MG TABLET PO SCH (07:26)
[2021-12-27] MEDS: BENZONATATE 100 MG CAPSULE PO PRN ×2 (07:29→12:37)
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
[2021-12-27] MEDS: METOPROLOL SUCCINATE 25 MG TAB.XL.24H PO SCH (09:11)
[2021-12-27] MEDS: DOCUSATE SODIUM 100 MG CAPSULE PO SCH (09:11)
[2021-12-27] MEDS: APIXABAN 5 MG TABLET PO SCH (09:11)
[2021-12-27] MEDS: cefTRIAXone 1 GM VIAL IV SCH (09:17)
[2021-12-27] MEDS ORDERED: FLU VACC QS2022-23(6MOS UP)/PF 60 MCG/0.5 ML SYRINGE IM ONE (12:15)
[2021-12-29 14:26] LABS: M. Pneumoniae IGG < or = 0.90; M. Pneumoniae IGM 66 U/mL
== END 2021-12-27 12:53 | disposition home or self-care (01) | DRG 871 ==
LOC: ED 09:45 → MEDSUR 14:35
PROVIDERS: ADMIT Internal Medicine; ATTEND Internal Medicine